=== PATIENT | female | born 1995 | race American Indian/Alaskan Native ===

== ENCOUNTER 2017-10-04 06:55 | Emergency (ER) | payer MEDICAID, OTHER ==
[2017-10-04] MEDS ORDERED: ZOFRAN IV ONE (09:26)
[2017-10-04] MEDS ORDERED: MORPHINE IV ONE (09:27)
--- NOTE | 2017-10-04 09:29 | Emergency Department Report ---
Blank Doc - Documentation Documentation: Patient is 22 years old female with no significant past medical history she's presented to the ER complaining of right lower quadrant pain started this morning. Patient denied any fever or vomiting. No diarrhea and no urinary symptoms. On physical exam patient does have a right lower quadrant tenderness was noted rebound tenderness. I believe this patient will need further workup to rule out appendicitis, ovarian cysts or other differential diagnosis. Labs and fluids and pain medicine and nausea medicines already been ordered.
[2017-10-04 10:07] LABS: Basophils # (Auto) 0.1 K/mm3 (0.0-0.1); Basophils % (Auto) 0.7 % (0.0-1.8); Eosinophils # (Auto) 0.2 K/mm3 (0.0-0.4); Eosinophils % (Auto) 3.3 % (0.0-4.3); Hematocrit 29.4 % (30.3-42.9); Lymphocytes # (Auto) 1.4 K/mm3 (1.2-5.4); Lymphocytes % (Auto) 18.1 % (13.4-35.0); Mean Corpuscular HGB Conc 34 % (30-34); Mean Corpuscular Hemoglobin 27 pg (28-32); Mean Corpuscular Volume 80 fl (79-97); Monocytes # (Auto) 0.9 K/mm3 (0.0-0.8); Monocytes % (Auto) 12.2 % (0.0-7.3); Platelet Count 310 K/mm3 (140-440); Red Blood Count 3.67 M/mm3 (3.65-5.03); Red Cell Distribution Width 15.6 % (13.2-15.2)
[2017-10-04 10:13] LABS: Bacteria,Urine 1+ /HPF (Negative); Bilirubin,Urine NEG (Negative); Blood,Urine NEG (Negative); Color,Urine Yellow (Yellow); Mucus,Urine 2+ /HPF; Urobilinogen,Urine < 2.0 mg/dL (<2.0)
[2017-10-04 10:25] LABS: Alanine Aminotransferase 9 units/L (7-56); Albumin 4.2 g/dL (3.9-5); BUN/Creatinine Ratio 21; Blood Urea Nitrogen 15 mg/dL (7-17); Calcium 9.9 mg/dL (8.4-10.2); Hemolysis Index 1; Lipase 23 units/L (13-60)
[2017-10-04 10:26] LABS: Bilirubin,Direct < 0.2 mg/dL (0-0.2)
--- NOTE | 2017-10-04 10:36 | Emergency Department Report ---
ED Abdominal Pain HPI - General Chief Complaint: Pain General Stated Complaint: CRISTIANO,RIGHT FLANK PAIN Time Seen by Provider: 10/04/17 09:20 Source: patient Mode of arrival: Ambulatory Limitations: No Limitations - History of Present Illness Initial Comments: This is a 22-year-old female nontoxic, well nourished in appearance, no acute signs of distress presents to the ED with c/o of right lower quadrant abdominal pain x2 days. Patient describes pain as aching with level of 8/10. Patient denies any radiation of pain. Patient denies any nausea, vomiting, fever, chills , headache, stiff neck, chest pain, back pain, shortness of breath. Patient denies any urinary symptoms. Patient denies any allergies or PMH. MD Complaint: abdominal pain -: days(s) (2) Location: RLQ Radiation: none Migration to: no migration Severity: mild Severity scale (0 -10): 8 Quality: aching Consistency: constant Improves With: nothing Worsens With: nothing Associated Symptoms: denies: nausea, vomiting, diarrhea, fever, chills, constipation, dysuria, hematemesis, hematochezia, melena, hematuria, anorexia, syncope - Related Data LMP Date: 09/13/17 Home Medications Medication Instructions Recorded Confirmed Last Taken Ferrous Sulfate [Feosol] 325 mg PO BID 11/03/15 11/03/15 Unknown Vit-Fe Fumar-FA [ 1 tab PO QDAY 11/03/15 11/03/15 Unknown Vitamin] Previous Rx's Medication Instructions Recorded Last Taken Type Ibuprofen [Motrin 600 MG tab] 600 mg PO Q6HR #30 tablet 11/04/15 Unknown Rx Vit-Fe Fumar-FA [ 1 each PO QDAY #60 tablet 11/04/15 Unknown Rx Vitamin] Ibuprofen [Motrin] 600 mg PO Q8H PRN #30 tablet 10/04/17 Unknown Rx Sulfamethoxazole/Trimethoprim 1 each PO BID #14 tablet 10/04/17 Unknown Rx [Bactrim DS TAB] Allergies Allergy/AdvReac Type Severity Reaction Status Date / Time No Known Allergies Allergy Verified 11/02/15 23:33 ED Review of Systems ROS: Stated complaint: CRISTIANO,RIGHT FLANK PAIN Other details as noted in HPI Constitutional: denies: chills, fever Eyes: denies: eye pain, eye discharge, vision change ENT: denies: ear pain, throat pain Respiratory: denies: cough, shortness of breath, wheezing Cardiovascular: denies: chest pain, palpitations Endocrine: no symptoms reported Gastrointestinal: abdominal pain. denies: nausea, diarrhea Genitourinary: denies: urgency, dysuria, discharge Musculoskeletal: denies: back pain, joint swelling, arthralgia Skin: denies: rash, lesions Neurological: denies: headache, weakness, paresthesias Psychiatric: denies: anxiety, depression Hematological/Lymphatic: denies: easy bleeding, easy bruising ED Past Medical Hx - Past Medical History Previous Medical History?: Yes Hx Hypertension: No Hx Congestive Heart Failure: No Hx Diabetes: No Hx Deep Vein Thrombosis: No Hx Renal Disease: No Hx Sickle Cell Disease: No Hx Seizures: No Hx Asthma: No Hx COPD: No Hx HIV: No Additional medical history: childbirth, Vaginal delivery 11-03-2015 - Surgical History Past Surgical History?: No - Social History Smoking Status: Never Smoker Substance Use Type: None - Medications Home Medications: Home Medications Medication Instructions Recorded Confirmed Last Taken Type Ferrous Sulfate [Feosol] 325 mg PO BID 11/03/15 11/03/15 Unknown History Vit-Fe Fumar-FA [ 1 tab PO QDAY 11/03/15 11/03/15 Unknown History Vitamin] Ibuprofen [Motrin 600 MG tab] 600 mg PO Q6HR #30 tablet 11/04/15 Unknown Rx Vit-Fe Fumar-FA [ 1 each PO QDAY #60 tablet 11/04/15 Unknown Rx Vitamin] Ibuprofen [Motrin] 600 mg PO Q8H PRN #30 tablet 10/04/17 Unknown Rx Sulfamethoxazole/Trimethoprim 1 each PO BID #14 tablet 10/04/17 Unknown Rx [Bactrim DS TAB] ED Physical Exam - General Limitations: No Limitations General appearance: alert, in no apparent distress - Head Head exam: Present: atraumatic, normocephalic - Eye Eye exam: Present: normal appearance Pupils: Present: normal accommodation - ENT ENT exam: Present: normal exam, mucous membranes moist - Neck Neck exam: Present: normal inspection, full ROM. Absent: tenderness, meningismus, lymphadenopathy - Respiratory Respiratory exam: Present: normal lung sounds bilaterally. Absent: respiratory distress, wheezes, rales, rhonchi, stridor, chest wall tenderness, accessory muscle use, decreased breath sounds, prolonged expiratory - Cardiovascular Cardiovascular Exam: Present: regular rate, normal rhythm, normal heart sounds. Absent: bradycardia, tachycardia, irregular rhythm, systolic murmur, diastolic murmur, rubs, gallop - GI/Abdominal GI/Abdominal exam: Present: soft, tenderness (RLQ), rebound (RLQ), normal bowel sounds. Absent: distended, guarding, rigid, diminished bowel sounds - Expanded GI/Abdominal Exam Expanded GI/Abdominal exam: Absent: psoas sign, obturator sign, heel tap sign, Cerda's sign, Rovsing's sign, tenderness at Mcburney's Point, ascites - Rectal Rectal exam: Present: deferred - Extremities Exam Extremities exam: Present: normal inspection, full ROM, normal capillary refill - Back Exam Back exam: Present: normal inspection, full ROM. Absent: tenderness, CVA tenderness (R), CVA tenderness (L), muscle spasm, paraspinal tenderness, vertebral tenderness, rash noted - Neurological Exam Neurological exam: Present: alert, oriented X3, normal gait - Psychiatric Psychiatric exam: Present: normal affect, normal mood - Skin Skin exam: Present: warm, dry, intact, normal color. Absent: rash ED Course Vital Signs 10/04/17 07:27 Temperature 98.6 F Pulse Rate 89 Respiratory 20 Rate Blood Pressure 101/66 O2 Sat by Pulse 100 Oximetry - Reevaluation(s) Reevaluation #1: 10/04/17 10:40 Patient is speaking in full sentences with no signs of distress noted. - Consultations Consultation #1: 10/04/17 10:40 Patient has been consulted with Dr. Martínez about patient history, physical exam , and labs/CT imaging and examined and screened patient and agrees to ED plan of care and discharge plan of care. ED Medical Decision Making - Lab Data Result diagrams: 10/04/17 10:00 10/04/17 10:00 - Medical Decision Making This is a 22-year-old female that presents with UTI and abdominal pain. Patient is stable and was examined by me and Dr. Martínez. Labs obtained within normal limits. UA indicates elevated WBC/ leukocytes. CT of abdomen obtained and dictated by the radiologist with no questions noted by the patient. Patient receievd Morphin and Zofran and patient stated symptoms has subsided. Patient drank 4 apple juices with no vomiting ntoed. Patient is discharged with Bactrim and motrin. Patient was instructed ot Follow-up with a primary care doctor in 3- 5 days or if symptoms worsen and continue return to emergency room as soon as possible. At time of discharge, the patient does not seem toxic or ill in appearance. No acute signs of distress noted. Patient agrees to discharge treatment plan of care. No further questions noted by the patient. Critical care attestation.: If time is entered above; I have spent that time in minutes in the direct care of this critically ill patient, excluding procedure time. ED Disposition Clinical Impression: Abdominal pain Qualifiers: Abdominal location: right lower quadrant Qualified Code(s): R10.31 - Right lower quadrant pain UTI (urinary tract infection) Qualifiers: Urinary tract infection type: site unspecified Hematuria presence: without hematuria Qualified Code(s): N39.0 - Urinary tract infection, site not specified Disposition: TO HOME OR SELFCARE Is pt being admited?: No Does the pt Need Aspirin: No Condition: Stable Instructions: Abdominal Pain (ED), Urinary Tract Infection in Women (ED), Sulfamethoxazole/Trimethoprim (By mouth) Additional Instructions: Follow-up with a primary care doctor in 3-5 days or if symptoms worsen and continue return to emergency room as soon as possible. Prescriptions: Ibuprofen [Motrin] 600 mg PO Q8H PRN #30 tablet PRN Reason: Pain Sulfamethoxazole/Trimethoprim [Bactrim DS TAB] 1 each PO BID #14 tablet Referrals: PRIMARY CAREMD [Primary Care Provider] - 3-5 Days JARED YUSUF MD [Staff Physician] - 3-5 Days [facility] [Outside] - 3-5 Days [facility] [Outside] - 3-5 Days Forms: Work/School Release Form(ED)
[2017-10-04] MEDS ORDERED: ROCEPHIN/NS 1 GM/50 ML 1 GM/50 ML BAG IV ONE (11:22)
[2017-10-04] MEDS ORDERED: TORADOL IV ONE (11:27)
--- NOTE | 2017-10-04 11:34 | Cat Scan Report ---
CT scan of abdomen and pelvis with IV contrast: History: Abdominal pain. Findings on Normal lung bases. No pleural pericardial effusion. Next Normal liver spleen pancreas and gallbladder. Normal adrenals kidney parenchyma and. No free intraperitoneal fluid or air. No evidence of adenopathy. Normal aorta. Large amount of gas and stool in colon. Fluid-filled loops of small bowel. No bowel distention. There is 4.6 cm x 3.7 cm cyst in the left adnexa. No evidence of appendicitis or diverticulitis. Impression: Large cyst left adnexa. Gaseous colon with nodular stool and air in colon. Fluid-filled nondistended loops of small bowel probably normal or related to enteritis or ileus.
[2017-10-04 11:58] VITALS: BP 105/70
[2017-10-04] MEDS ORDERED: cefTRIAXone 1 GM in NACL 0.9% 20 ML IV ONE (12:00)
== END 2017-10-04 11:58 | disposition home or self-care (01) ==
LOC: ED 06:55
DX: N39.0 Urinary tract infection, site not specified (principal)
CPT/HCPCS: 36415; 74177; 80048; 80074; 81001; 83690; 84703; 85025; 96365; 96375; 99284; J1885; J2270; J2405; Q9967; J0696

== ENCOUNTER 2019-05-12 09:56 | Emergency (ER) | payer OTHER ==
[2019-05-12 10:04] VITALS: BP 109/66
--- NOTE | 2019-05-12 10:46 | Emergency Department Report ---
ED Female HPI - General Chief complaint: Abdominal Pain Stated complaint: POSS /PAIN Time Seen by Provider: 05/12/19 10:38 Source: patient Mode of arrival: Ambulatory Limitations: No Limitations - History of Present Illness Initial comments: This is a 23-year-old -English female who presents to the emergency room with pelvic pain, urinary frequency, and vaginal discharge for several days. Patient reports she is but is not sure how far along. Her last menstrual period was 04/01/2019, A0. She also requests "I would like to see how far along I am". Denies dysuria, fever, chills, vaginal bleeding, hematuria, back pain, nausea or vomiting. MD Complaint: vaginal discharge, pelvic pain Onset/Timin -: days(s) Location: suprapubic Radiation: non-radiating Severity: mild Severity scale (0 -10): 3 Quality: cramping Consistency: intermittent Improves with: none Worsens with: none Are you Now?: Yes Last Menstrual Period: 04/01/19 EDC: 01/06/20 Associated Symptoms: vaginal discharge, abdominal pain. denies: vaginal bleeding, nausea/vomiting, fever/chills, loss of appetite, dysuria, hematuria, rash, seizure, shortness of breath, weakness - Related Data Sexually active: Yes : 2 Para: 1 A: 0 Home Medications Medication Instructions Recorded Confirmed Last Taken Ferrous Sulfate [Feosol] 325 mg PO BID 11/03/15 11/03/15 Unknown Vit-Fe Fumar-FA [ 1 tab PO QDAY 11/03/15 11/03/15 Unknown Vitamin] Previous Rx's Medication Instructions Recorded Last Taken Type Ibuprofen [Motrin 600 MG tab] 600 mg PO Q6HR #30 tablet 11/04/15 Unknown Rx Vit-Fe Fumar-FA [ 1 each PO QDAY #60 tablet 11/04/15 Unknown Rx Vitamin] Ibuprofen [Motrin] 600 mg PO Q8H PRN #30 tablet 10/04/17 Unknown Rx Sulfamethoxazole/Trimethoprim 1 each PO BID #14 tablet 10/04/17 Unknown Rx [Bactrim DS TAB] Nystas/Diphen/Xyl Visc/Mylanta 10 ml MM Q4H PRN #100 ml 06/07/18 Unknown Rx [Magic Mouthwash] Penicillin V Potassium 500 mg PO BID 10 Days #20 tablet 06/07/18 Unknown Rx 21/Iron Fu/Folic Acid 1 each PO DAILY #30 tablet 05/12/19 Unknown Rx [ Complete Caplet] cephALEXin [Keflex] 500 mg PO Q12HR #14 cap 05/12/19 Unknown Rx metroNIDAZOLE [Flagyl TAB] 500 mg PO Q12HR #14 tab 05/12/19 Unknown Rx Allergies Allergy/AdvReac Type Severity Reaction Status Date / Time No Known Allergies Allergy Verified 11/02/15 23:33 ED Review of Systems ROS: Stated complaint: POSS /PAIN Other details as noted in HPI Constitutional: denies: chills, fever Respiratory: denies: cough, shortness of breath, wheezing Cardiovascular: denies: chest pain, palpitations Gastrointestinal: abdominal pain. denies: nausea, diarrhea Genitourinary: frequency, discharge. denies: urgency, dysuria, abnormal menses Musculoskeletal: denies: back pain, joint swelling, arthralgia Skin: denies: rash, lesions Neurological: denies: headache, weakness, paresthesias Psychiatric: denies: anxiety, depression ED Past Medical Hx - Past Medical History Previous Medical History?: No Hx Hypertension: No Hx Congestive Heart Failure: No Hx Diabetes: No Hx Deep Vein Thrombosis: No Hx Renal Disease: No Hx Sickle Cell Disease: No Hx Seizures: No Hx Asthma: No Hx COPD: No Hx HIV: No Additional medical history: childbirth, Vaginal delivery 11-03-2015 - Surgical History Past Surgical History?: No - Social History Smoking Status: Never Smoker Substance Use Type: Alcohol - Medications Home Medications: Home Medications Medication Instructions Recorded Confirmed Last Taken Type Ferrous Sulfate [Feosol] 325 mg PO BID 11/03/15 11/03/15 Unknown History Vit-Fe Fumar-FA [ 1 tab PO QDAY 11/03/15 11/03/15 Unknown History Vitamin] Ibuprofen [Motrin 600 MG tab] 600 mg PO Q6HR #30 tablet 11/04/15 Unknown Rx Vit-Fe Fumar-FA [ 1 each PO QDAY #60 tablet 11/04/15 Unknown Rx Vitamin] Ibuprofen [Motrin] 600 mg PO Q8H PRN #30 tablet 10/04/17 Unknown Rx Sulfamethoxazole/Trimethoprim 1 each PO BID #14 tablet 10/04/17 Unknown Rx [Bactrim DS TAB] Nystas/Diphen/Xyl Visc/Mylanta 10 ml MM Q4H PRN #100 ml 06/07/18 Unknown Rx [Magic Mouthwash] Penicillin V Potassium 500 mg PO BID 10 Days #20 tablet 06/07/18 Unknown Rx 21/Iron Fu/Folic Acid 1 each PO DAILY #30 tablet 05/12/19 Unknown Rx [ Complete Caplet] cephALEXin [Keflex] 500 mg PO Q12HR #14 cap 05/12/19 Unknown Rx metroNIDAZOLE [Flagyl TAB] 500 mg PO Q12HR #14 tab 05/12/19 Unknown Rx ED Physical Exam - General Limitations: No Limitations General appearance: alert, in no apparent distress - Respiratory Respiratory exam: Present: normal lung sounds bilaterally. Absent: respiratory distress - Cardiovascular Cardiovascular Exam: Present: regular rate, normal rhythm. Absent: systolic murmur, diastolic murmur, rubs, gallop - GI/Abdominal GI/Abdominal exam: Present: soft, normal bowel sounds. Absent: distended, tenderness, guarding, rebound, rigid, organomegaly - External exam: Present: normal external exam Speculum exam: Present: vaginal discharge (malodorousness frothy yellowish discharge). Absent: erythema, cervical discharge, vaginal bleeding, foreign body, tissue, laceration Bi-manual exam: Present: cervical motion tendernes, uterine enlargement. Absent: adnexal tenderness, adnexal mass - Extremities Exam Extremities exam: Present: normal inspection - Back Exam Back exam: Absent: CVA tenderness (R), CVA tenderness (L) - Neurological Exam Neurological exam: Present: alert, oriented X3, normal gait - Psychiatric Psychiatric exam: Present: normal affect, normal mood - Skin Skin exam: Present: warm, dry, intact, normal color. Absent: rash ED Course Vital Signs 05/12/19 10:02 Temperature 98.7 F Pulse Rate 74 Respiratory 16 Rate Blood Pressure 109/66 O2 Sat by Pulse 100 Oximetry ED Medical Decision Making - Lab Data Lab Results 05/12/19 Range/Units 10:53 Urine Color Yellow (Yellow) Urine Turbidity Cloudy (Clear) Urine pH 5.0 (5.0-7.0) Ur Specific [place] 1.018 (1.003-1.030) Urine Protein <15 mg/dl (Negative) mg/dL Urine Glucose (UA) Neg (Negative) mg/dL Urine Ketones Neg (Negative) mg/dL Urine Blood Sm (Negative) Urine Nitrite Pos (Negative) Ur Reducing Substances Not Reportable Urine Bilirubin Neg (Negative) Urine Ictotest Not Reportable Urine Urobilinogen < 2.0 (<2.0) mg/dL Ur Leukocyte Esterase Lg (Negative) Urine WBC (Auto) 14.0 H (0.0-6.0) /HPF Urine RBC (Auto) 6.0 (0.0-6.0) /HPF U Epithel Cells (Auto) 8.0 (0-13.0) /HPF Urine Bacteria (Auto) 2+ (Negative) /HPF Urine Mucus 3+ /HPF Urine HCG, Qual Positive A (Negative) - Medical Decision Making Patient was examined by me. Patient is nontoxic appearing and stable. Vitals are normal. Patient is nontender on abdominal exam. Pelvic exam performed, frothy malodorous yellowish discharge, and cervical motion tenderness. Obtained urinalysis, urine test, wet prep, and gonorrhea and chlamydia. Urinalysis positive for nitrates, leukocyte esterase, elevated WBCs, and small amount of blood which is acute cystitis. Patient denies vaginal bleeding, nontender on abdominal exam, and no signs of open os on pelvic exam. At this time I do not believe this is a threatened miscarriage, abdominal abscess, or appendicitis. Wet prep positive for clue cells, negative trichomoniasis and yeast. Gonorrhea and chlamydia pending. Empirically treated for gonorrhea and chlamydia. Patient will be treated for acute cystitis and acute bacterial vaginitis. Start complete, Keflex, and metronidazole. Referral to [facility] for continued care. Patient informed of results and ER plan. Follow up with PCP or return to the ER with worsening symptoms. Patient discharged home in stable condition. Critical care attestation.: If time is entered above; I have spent that time in minutes in the direct care of this critically ill patient, excluding procedure time. ED Disposition Clinical Impression: Vaginal discharge, Urinary frequency, confirmed by positive urine test, Acute cervicitis, Bacterial vaginitis Acute cystitis Qualifiers: Hematuria presence: with hematuria Qualified Code(s): N30.01 - Acute cystitis with hematuria Disposition: TO HOME OR SELFCARE Is pt being admited?: No Condition: Stable Instructions: Abdominal Pain (ED), Cervicitis (ED), Bacterial Vaginosis (ED) Additional Instructions: Complete full course of antibiotics as prescribed. Follow-up with the blood bank laboratory professional from the referrals list below for continued care. . Return to the emergency room if you notice vaginal bleeding and severe pelvic pain. Prescriptions: metroNIDAZOLE [Flagyl TAB] 500 mg PO Q12HR #14 tab cephALEXin [Keflex] 500 mg PO Q12HR #14 cap 21/Iron Fu/Folic Acid [ Complete Caplet] 1 each PO DAILY #30 tablet Referrals: [facility] [Provider Group] - 3-5 Days [facility] [Provider Group] - 3-5 Days [facility] [Provider Group] - 3-5 Days Forms: STI Treatment and Prevention Time of Disposition: 12:17
[2019-05-12 11:24] LABS: HCG Qualitative,Urine Positive (Negative)
[2019-05-12 11:27] LABS: Bacteria,Urine 2+ /HPF (Negative); Bilirubin,Urine NEG (Negative); Blood,Urine SM (Negative); Color,Urine Yellow (Yellow); Mucus,Urine 3+ /HPF; Protein,Urine <15 mg/dL mg/dL (Negative); Urobilinogen,Urine < 2.0 mg/dL (<2.0)
[2019-05-12] MEDS ORDERED: AZITHROMYCIN 250 MG TAB PO ONE (11:58)
[2019-05-12] MEDS ORDERED: LIDOCAINE-MPF (1%) 10 MG/1 ML VIAL 5 ML INFILTRATI ONE (11:58)
== END 2019-05-12 12:47 | disposition home or self-care (01) ==
LOC: ED 09:56
DX: O23.511 Infections of cervix in pregnancy, first trimester (principal); O23.11 Infections of bladder in pregnancy, first trimester; O23.591 Infection of other part of genital tract in pregnancy, first trimester; Z3A.01 Less than 8 weeks gestation of pregnancy
CPT/HCPCS: 81001; 81025; 87086; 87210; 87591; 96372; 99284; J0696